=== PATIENT | female | born 1935 | race Caucasian/White ===

== ENCOUNTER 2023-08-03 12:42 | Outpatient (CLI) | payer MEDICARE | END 2023-08-03 12:43 | disposition home or self-care (01) | LOC: CSHMRI 12:42 | PROVIDERS: ATTEND Family Medicine | DX: G45.9 Transient cerebral ischemic attack, unspecified (principal); R90.82 White matter disease, unspecified; G31.9 Degenerative disease of nervous system, unspecified | CPT/HCPCS: 70553; 82565 ==